=== PATIENT | female | born 1950 | race Caucasian/White ===

== ENCOUNTER 2022-12-18 15:40 | Emergency (ER) | payer MEDICARE ==
[~2022-12-18] VITALS: Ht 162.6 cm; Wt 54.4 kg
--- NOTE | 2022-12-18 16:00 | NUR ---
SENT HERE BY PCP FOR FURTHER EVAL OF RLQ PAIN TO R/O APPY
--- NOTE | 2022-12-18 16:00 | NUR ---
Araceli bobo in [facility] - 12/18/22 at 1614 by EVERT SENT HERE BY PCP FOR FURTHER EVAL OF RLQ PAIN TO R/O APPY
--- NOTE | 2022-12-18 16:00 | NUR ---
TO ER 9 FOR [facility]
[2022-12-18 16:23] LABS: BASOPHILS % (AUTO) 0.3 % (0.0-2.0); EOSINOPHILS % (AUTO) 2.3 % (0.0-6.0); HEMATOCRIT 46 % (33-45); HEMOGLOBIN 14.8 g/dL (11.5-14.8); LYMPHOCYTES # (AUTO) 1.8 K/uL (0.8-4.8); LYMPHOCYTES % (AUTO) 32.2 % (20.0-44.0); MEAN CORPUSCULAR HGB CONC 33 g/dl (31.0-36.0); MEAN CORPUSCULAR VOLUME 90 fL (82-100); MONOCYTES # (AUTO) 0.5 K/uL (0.1-1.30); MONOCYTES % (AUTO) 8.8 % (2.0-12.0); NEUTROPHILS # (AUTO) 3.1 K/uL (1.8-8.9); NEUTROPHILS % (AUTO) 56.4 % (43.0-81.0); PLATELET COUNT (AUTO) 155 K/uL (150-450); RED BLOOD CELL COUNT(AUTO) 5.06 MIL/uL (4.0-5.2); WHITE BLOOD COUNT (AUTO) 5.5 K/uL (4.3-11.0)
[2022-12-18 16:46] LABS: ALBUMIN 4.2 g/dL (3.4-5.0); BILIRUBIN,DIRECT 0.2 mg/dL (0.0-0.2); BILIRUBIN,TOTAL 0.7 mg/dL (0.2-1.0); CALCIUM, SERUM 9.6 mg/dL (8.5-10.1); CREATININE 0.9 mg/dL (0.6-1.3); POTASSIUM 3.7 mmol/L (3.5-5.1); TOTAL PROTEIN, SERUM 8.3 g/dL (6.4-8.2)
--- NOTE | 2022-12-18 16:50 | NUR ---
DR NUÑEZ REQUESTING CALL BACK TO [phone] ONCE LABS ARE IN.
[2022-12-18] MEDS ORDERED: ONDANSETRON HCL/PF 4 MG/2 ML VIAL ONE (16:54)
[2022-12-18] MEDS ORDERED: MORPHINE SULFATE INJ 4 MG/ML DISP.SYRIN ONE (16:54)
[2022-12-18] MEDS ORDERED: ONDANSETRON HCL/PF - ER 4 MG/2 ML VIAL IV ONE (17:00)
[2022-12-18] MEDS ORDERED: MORPHINE SULFATE INJ 2 MG/ML DISP.SYRIN IV ONE (17:00)
--- NOTE | 2022-12-18 17:15 | NUR ---
COVID SWAB TAKEN
[2022-12-18 17:48] LABS: BILIRUBIN,URINE 1+ (NEGATIVE); COLOR,URINE YELLOW (YELLOW); LEUKOCYTE ESTERASE ,URINE 2+ (NEGATIVE); NITRITE, URINE NEGATIVE (NEGATIVE); PROTEIN,URINE NEGATIVE (NEGATIVE); UGLUCOSE NEGATIVE (NEGATIVE); UROBILINOGEN,URINE 0.2 EU/dL (0.2)
[2022-12-18] MEDS ORDERED: ATOR10TA PO (18:18)
[2022-12-18 18:52] LABS: WBC,URINE 21-50 /HPF (0-3)
[2022-12-18 18:53] LABS: BACTERIA,URINE 1+ /HPF (None Seen); MUCUS,URINE Few /LPF (None Seen)
[2022-12-18] MEDS ORDERED: CEPH500C2 PO ×2 (19:25→19:26)
[2022-12-18] MEDS ORDERED: IBUP-1955 PO (19:26)
[2022-12-18] MEDS ORDERED: TRAM50TA2 PO (19:26)
[2022-12-18] MEDS ORDERED: HYDROCODONE/APAP 10/325MG TABLET PO ONE (19:30)
[2022-12-18] MEDS ORDERED: IBUPROFEN 600 MG TABLET PO ONE (19:30)
[2022-12-18] MEDS ORDERED: CEFTRIAXONE 1 G in IV D5W 50 ML IV ONE (19:30)
[2022-12-18] MEDS ORDERED: CEFTRIAXONE 1GM BAG (ER ONLY) 50 ML IV ONE (19:31)
[2022-12-18] MEDS ORDERED: HYDROCODONE/APAP 10/325MG TABLET ONE (19:32)
[2022-12-18] MEDS ORDERED: IBUPROFEN 600 MG TABLET ONE (19:32)
--- NOTE | 2022-12-18 20:00 | NUR ---
Patient discharged to home in stable condition. Written and verbal after care instructions given to pt and family. Patient and family member verbalizes understanding of instruction.
--- NOTE | 2022-12-18 20:00 | NUR ---
IV removed. Catheter intact and site benign. Pressure and 4x4 applied to site. No bleeding noted.
[2022-12-18 20:01] VITALS: BP 125/63
== END 2022-12-18 20:02 | disposition home or self-care (01) ==
LOC: ER 15:46
DX: N39.0 Urinary tract infection, site not specified (principal); R10.31 Right lower quadrant pain; K82.8 Other specified diseases of gallbladder; Z79.899 Other long term (current) drug therapy
CPT/HCPCS: 99285; 74176; 96365; 96375; 87426; 85025; 80048; 83690; 80076; 81001; 36415; 85730; J2270; J0696 ×2; J2405 ×2; J7060; C9803